=== PATIENT | female | born 1995 | race Caucasian/White ===

== ENCOUNTER 2021-11-21 16:49 | Emergency (ER) | payer MEDICAID ==
[~2021-11-21] VITALS: Ht 161 cm; Wt 54.1 kg
[2021-11-21 16:55] VITALS: BP 137/94
--- NOTE | 2021-11-21 17:05 | NUR ---
C/O 10/10 URINARY BURNING SENSATION, RLQ ABDOMINAL PAIN , RIGHT LOWER BACK PAIN X 5 DAYS AND HEMATURIA 3 DAYS AGO. PMH: DENIES
[2021-11-21] MEDS ORDERED: KETOROLAC 60 MG/2 ML VIAL IM ONE (18:20)
[2021-11-21] MEDS ORDERED: cefTRIAXone 1,000 MG in LIDOCAINE MPF 1% 2.1 ML IM ONE (18:20)
[2021-11-21] MEDS ORDERED: LIDOCAINE MPF 1% 5 ML ONE (18:26)
[2021-11-21] MEDS ORDERED: cefTRIAXone 1,000 MG VIAL ONE (18:26)
[2021-11-21] MEDS ORDERED: PHEN-1877 PO (18:43)
[2021-11-21] MEDS ORDERED: NITR100C7 PO (18:43)
[2021-11-21 18:45] VITALS: BP 137/94
--- NOTE | 2021-11-21 18:45 | NUR ---
Patient discharged with v/s stable. Written and verbal after care instructions given and explained. Patient alert, oriented and verbalized understanding of instructions. Ambulatory with steady gait. All questions addressed prior to discharge. ID band removed. Patient advised to follow up with PMD. Rx of PYRIDIUM, MACROBID given. Patient educated on indication of medication including possible reaction and side effects. Opportunity to ask questions provided and answered. Addendum: 11/21/21 [facility] 1856 [facility]
[2021-11-21 18:53] LABS: APPEARANCE,URINE CLEAR (CLEAR); BILIRUBIN,URINE NEGATIVE (NEGATIVE); BLOOD, URINE 3+ (NEGATIVE); COLOR,URINE YELLOW (YELLOW); LEUKOCYTE ESTERASE ,URINE 2+ (NEGATIVE); NITRITE, URINE POSITIVE (NEGATIVE); UGLUCOSE NEGATIVE (NEGATIVE)
[2021-11-21 19:03] LABS: RBC,URINE 0-5 /HPF (0-5); TRICHOMONAS,URINE None Seen /HPF (None Seen); WBC,URINE 20-60 /HPF (0-5); YEAST,URINE None Seen /HPF (None Seen)
== END 2021-11-21 18:45 | disposition home or self-care (01) ==
LOC: MED 16:49
DX: N39.0 Urinary tract infection, site not specified (principal)
CPT/HCPCS: 81001; 81025; 87086; 96372; 99284; J0696; J1885; J2001